=== PATIENT | female | born 1985 | race Caucasian/White ===

== ENCOUNTER 2022-03-18 01:44 | Emergency (ER) | payer OTHER ==
[2022-03-18 02:23] VITALS: BP 127/85; PULSE 70; TEMP 98.1; BMI 29.2
[2022-03-18] MEDS ORDERED: morphine CARPU-JECT 4 MG/1 ML DISP.SYRIN IVPUSH ONE (03:49)
[2022-03-18] MEDS ORDERED: morphine SULFATE 4 MG/ML VIAL ONE (04:00)
[2022-03-18 04:52] LABS: BASO % 0.5 % (0-2.0); EOS % 3.6 % (0-4.5); HEMATOCRIT 38.2 % (32.4-45.2); HEMOGLOBIN 13.1 GM/dL (10.7-15.3); LYMPH % 36.1 % (8-40); MCH 30.1 pg (25.7-33.7); MCHC 34.3 g/dl (32.0-36.0); MEAN CELL VOLUME 87.9 fl (80-96); MEAN PLT VOLUME 8.3 fl (7.5-11.1); MONO % 3.9 % (3.8-10.2); NEUT % 55.9 % (42.8-82.8); PLATELET COUNT 265 10^3/uL (134-434); RBC 4.35 M/mm3 (3.60-5.2); WHITE BLOOD COUNT 5.8 K/mm3 (4.0-10.0)
[2022-03-18 05:11] LABS: CALCIUM 8.9 mg/dL (8.5-10.1)
[2022-03-18 05:12] LABS: ALBUMIN 3.8 g/dl (3.4-5.0)
[2022-03-18 05:14] LABS: CREATININE 0.9 mg/dL (0.55-1.3)
[2022-03-18 05:16] LABS: BILIRUBIN,TOTAL 0.4 mg/dL (0.2-1); TOT PROT 6.8 g/dl (6.4-8.2)
== END 2022-03-18 06:26 | disposition home or self-care (01) ==
LOC: JER 01:44 → EDBD 01:44 → JER 06:26
PROC: 3E033NZ Introduction of Analgesics, Hypnotics, Sedatives into Peripheral Vein, Percutaneous Approach (ICD-10-PCS; principal; 2022-03-18)
DX: R68.84 Jaw pain (principal)
CPT/HCPCS: 36415; 70490-TC; 80053; 84703; 85025; 99284-25